=== PATIENT | male | born 1995 | race Hispanic/Latino ===

== ENCOUNTER 2018-09-03 06:51 | Emergency (ER) | payer BC ==
[2018-09-03] MEDS ORDERED: FAMOTIDINE/PF 20 MG/2 ML VIAL IV ONE (07:40)
[2018-09-03] MEDS ORDERED: ONDANSETRON HCL 4 MG/2 ML VIAL ONE (07:40)
[2018-09-03 07:58] LABS: BASOPHILS % (AUTO) 0.1 % (0.0-5.0); EOSINOPHILS % (AUTO) 0.4 % (0.0-8.0); HEMATOCRIT 44.7 % (42-54); LYMPHOCYTES % (AUTO) 3.1 % (21.0-51.0); MEAN CORPUSCULAR HEMOGLOBIN 31.5 pg (27.0-33.0); MEAN CORPUSCULAR HGB CONC 33.7 g/dL (32.0-36.0); MEAN CORPUSCULAR VOLUME 93.6 fL (80-100); MONOCYTES % (AUTO) 4.2 % (3.0-13.0); NEUTROPHILS % (AUTO) 92.2 % (40.0-77.0); PLATELET COUNT (AUTO) 238 K/uL (130-400); RED BLOOD CELL COUNT(AUTO) 4.77 MIL/uL (4.50-6.20); RED CELL DISTRIBUTION WIDTH 13.9 % (11.0-15.5)
[2018-09-03 08:10] LABS: CREATININE 0.9 mg/dL (0.5-1.5); POTASSIUM 3.9 mmol/L (3.5-5.1)
[2018-09-03 08:12] LABS: RAPID GROUP A STREP NEGATIVE (NEGATIVE)
[2018-09-03 08:16] LABS: ALBUMIN 4.7 g/dL (3.5-5.0); BILIRUBIN,TOTAL 0.7 mg/dL (0.2-1.0); TOTAL PROTEIN, SERUM 8.1 g/dL (6.0-8.3)
[2018-09-03] MEDS ORDERED: ACETAMINOPHEN EXTRA STRENGTH 500 MG TABLET ONE (08:37)
[2018-09-03 08:38] LABS: APPEARANCE,URINE Clear (CLEAR); BILIRUBIN,URINE Negative (NEGATIVE); COLOR,URINE Yellow (YELLOW); GLUCOSE, URINE (UA) Negative (NEGATIVE); KETONES,URINE Negative (NEGATIVE); LEUKOCYTE ESTERASE ,URINE Negative (NEGATIVE); NITRATE,URINE Negative (NEGATIVE); OCCULT BLOOD,URINE Negative (NEGATIVE); PH,URINE 7.5 (5.0-8.0); PROTEIN,URINE Negative (NEGATIVE)
== END 2018-09-03 09:33 | disposition home or self-care (01) ==
LOC: EDH 06:51
DX: T62.8X1A Toxic effect of other specified noxious substances eaten as food, accidental (unintentional), initial encounter (principal); E86.0 Dehydration; R11.2 Nausea with vomiting, unspecified; R10.13 Epigastric pain; Y92.89 Other specified places as the place of occurrence of the external cause
CPT/HCPCS: 36415; 80053; 81003; 83690; 85025; 87804 ×2; 87880; 96361; 96374; 96375; 99285; J2405; J3490

== ENCOUNTER 2022-01-27 23:10 | Emergency (ER) | payer BC ==
[~2022-01-27] VITALS: Ht 172.7 cm; Wt 53.5 kg
[~2022-01-27 23:10] MED LIST: 0.9%NACL 1000ML 1,000 ML IV ONE; ONDANSETRON 4MG INJ IVP ONE
[2022-01-27 23:40] LABS: BASOPHILS % (AUTO) 0.3 % (0.0-5.0); EOSINOPHILS % (AUTO) 0.8 % (0.0-8.0); HEMATOCRIT 42.1 % (42-54); LYMPHOCYTES % (AUTO) 7.8 % (21.0-51.0); MEAN CORPUSCULAR HEMOGLOBIN 31.5 pg (27.0-33.0); MEAN CORPUSCULAR HGB CONC 34.9 g/dL (32.0-36.0); MEAN CORPUSCULAR VOLUME 90.3 fL (79-99); MONOCYTES % (AUTO) 6.5 % (3.0-13.0); NEUTROPHILS % (AUTO) 84.3 % (40.0-77.0); PLATELET COUNT (AUTO) 209 K/uL (130-400); RED BLOOD CELL COUNT(AUTO) 4.66 MIL/uL (4.50-6.20); RED CELL DISTRIBUTION WIDTH 13.2 % (11.0-15.5); WHITE BLOOD COUNT (AUTO) 7.8 K/uL (4.8-10.8)
[2022-01-27 23:45] LABS: APPEARANCE,URINE CLEAR (CLEAR); BILIRUBIN,URINE NEGATIVE (NEGATIVE); COLOR,URINE YELLOW (YELLOW); GLUCOSE, URINE (UA) NEGATIVE (NEGATIVE); KETONES,URINE NEGATIVE (NEGATIVE); LEUKOCYTE ESTERASE ,URINE NEGATIVE Leu/uL (NEGATIVE); NITRATE,URINE NEGATIVE (NEGATIVE); OCCULT BLOOD,URINE SMALL (NEGATIVE); PH,URINE 5.5 (5.0-8.0); PROTEIN,URINE 20 mg/dL (NEGATIVE); UROBILINOGEN,URINE 0.2 mg/dL (0.2-1.0)
[2022-01-27 23:49] LABS: MUCUS,URINE MANY LPF (None Seen); SQUAMOUS EPITHELIAL CELL,UR RARE /HPF (0-2)
[2022-01-27 23:51] LABS: CREATININE 0.9 mg/dL (0.5-1.5); POTASSIUM 3.3 mmol/L (3.5-5.1)
[2022-01-27 23:55] LABS: TOTAL PROTEIN, SERUM 7.3 g/dL (6.0-8.3)
[2022-01-28] MEDS ORDERED: ONDANSETRON 4MG INJ IVP ONE (01:00)
[2022-01-28] MEDS ORDERED: 0.9%NACL 1000ML 1,000 ML IV SCH ×2 (01:00)
[2022-01-28 01:06] VITALS: BP 112/69
[2022-01-28] MEDS ORDERED: ONDA4TAB10 PO (01:24)
== END 2022-01-28 01:35 | disposition home or self-care (01) ==
LOC: EDH 23:10
DX: K52.9 Noninfective gastroenteritis and colitis, unspecified (principal); E86.9 Volume depletion, unspecified
CPT/HCPCS: 99284; 80053; 83690; 85025; 81001; 36415; 96374; J7030; J2405

== ENCOUNTER 2022-03-27 15:23 | Emergency (ER) | payer BC ==
[~2022-03-27] VITALS: Ht 177.8 cm; Wt 54.4 kg
[~2022-03-27 15:23] MED LIST changes: -0.9%NACL 1000ML 1,000 ML IV ONE; +ONDA4TAB10 PO; -ONDANSETRON 4MG INJ IVP ONE
[2022-03-27 15:25] VITALS: BP 142/83
[2022-03-27 16:18] LABS: APPEARANCE,URINE CLEAR (CLEAR); BILIRUBIN,URINE NEGATIVE (NEGATIVE); COLOR,URINE LIGHT-YELLOW (YELLOW); GLUCOSE, URINE (UA) NEGATIVE (NEGATIVE); KETONES,URINE NEGATIVE (NEGATIVE); LEUKOCYTE ESTERASE ,URINE 250 Leu/uL (NEGATIVE); NITRATE,URINE NEGATIVE (NEGATIVE); OCCULT BLOOD,URINE NEGATIVE (NEGATIVE); PH,URINE 6.5 (5.0-8.0); PROTEIN,URINE NEGATIVE (NEGATIVE); UROBILINOGEN,URINE 0.2 mg/dL (0.2-1.0)
[2022-03-27 16:23] LABS: BACTERIA,URINE RARE /HPF (None Seen); MUCUS,URINE RARE LPF (None Seen); SQUAMOUS EPITHELIAL CELL,UR RARE /HPF (0-2); WBC,URINE 51-100 /HPF (0-1)
[2022-03-27] MEDS ORDERED: AZITHROMYCIN 250 MG TABLET PO ONE (17:00)
[2022-03-27] MEDS ORDERED: CEFTRIAXONE 1G VIAL IM ONE (17:00)
== END 2022-03-27 17:22 | disposition home or self-care (01) ==
LOC: EDH 15:23
DX: A54.9 Gonococcal infection, unspecified (principal)
CPT/HCPCS: 99284; 87088; 87797; 87486; 81001; 96372; J0696

== ENCOUNTER 2025-01-08 22:54 | Emergency (ER) | payer BC, OTHER ==
[~2025-01-08] VITALS: Ht 175.3 cm; Wt 64.9 kg
[~2025-01-08 22:54] MED LIST changes: +ONDA-243 PO; -ONDA4TAB10 PO
[2025-01-08 23:30] LABS: IMMATURE GRANULOCYTE ABSOLUTE 0.02 K/uL (0-1); NUCLEATED RED BLOOD CELLS 0.0 % (0.0-0.19); PLATELET COUNT (AUTO) 208 K/uL (130-400); RED BLOOD CELL COUNT(AUTO) 4.06 MIL/uL (4.50-6.20); RED CELL DISTRIBUTION WIDTH 13.1 % (11.0-15.5); WHITE BLOOD COUNT (AUTO) 6.8 K/uL (4.8-10.8)
[2025-01-08 23:48] LABS: CREATININE 0.7 mg/dL (0.5-1.3); GLOMERULAR FILTR. RATE CALC 130.0 mL/min (>90); GLUCOSE,RANDOM 90.0 mg/dL (70-105); SODIUM SERUM 139.0 mmol/L (136-145); UREA NITROGEN, BLOOD 18.0 mg/dL (7-18)
--- NOTE | 2025-01-09 00:10 | ERN ---
ED Note History of Present Illness Stated Complaint: C/O HEADACHE ONSET THIS EVENING Chief Complaint: Headache Time Seen by MD: 22:57 Time Seen by Midlevel: 22:57 Dictation: The Patient is a 29-year-old male with no past medical history who presents to the emergency department with complaints of generalized headache onset today. Patient reports he has frequent headaches and has been having them for over a year. Reports headaches are almost every other day. Patient denies any head trauma. Denies any fevers. Allergies: Coded Allergies: No Known Allergies (Unverified Allergy, Unknown, 01/27/22) Home Meds Active Scripts Ondansetron (Ondansetron Odt) 4 Mg Tab.rapdis, 4 MG PO TIDP PRN for NAUSEA/VOMITING, #12 TAB 0 Refills Prov:YANIV CASTANO MD 01/28/22 Past Medical History Past Medical History: No Pertinent History Surgical History: None Social History: Other RN Note Reviewed/Agreed w/PFSH: Yes Review of System Dictation Constitutional: Negative for fever,chills, and weight loss Eyes: Negative for injury, pain,redness, and discharge ENT: Negative for injury,pain or swelling Cardiovascular: Negative for chest pain, palpitations, and edema Respiratory: Negative for shortness of breath, cough, and wheezing, Abdomen/GI: Negative for abdominal pain, nausea, vomiting, diarrhea, and constipation Back: Negative for injury and pain : Negative for injury, bleeding and discharge MS/Extremity: Negative for injury and deformity Skin: Negative for rash, and discoloration Neuro: Negative for , weakness, numbness, tingling, and seizure positive for headache Psych: Negative for suicide ideation, homicidal ideation, and hallucinations Initial Vital Sign VS Vital Signs Date Time Temp Pulse Resp B/P (MAP) Pulse Ox O2 Delivery O2 Flow Rate FiO2 01/08/25 22:56 98.2 78 20 118/74 99 Room Air 01/09/25 01:14 0 21 Physical Exam Dictation Vital Signs reviewed General Appearance: Alert, oriented x 3, no acute distress, well developed, nourished. Head and Face: non-traumatic. Eyes: PERRL, pink conjunctivas, eyelid no trauma, anterior chamber with arcus senilis. Ears: Pinnas intact and no signs of trauma or erythema ear canals clear and no discharge TM no erythema Nose: No discharge, no bleeding. Oropharynx: Mouth normal, tongue pink. pharynx clear,no erythema, tonsils no exudates, no abscesses noted, mucous membrane moist Neck: Supple, non-tender, no thyromegaly, no masses, no JVD, no bruits Breast:Deferred Chest:No tenderness, no crepitus, no paradoxical movement, no retractions Lungs:Clear, well-ventilated, symmetric, no rales, no wheezing, no rhonchi, no stridor, good breath sounds bilaterally Heart: Regular rate, regular rhythm, no murmur, no gallops Vascular: no peripheral edema, Abdomen: Soft, positive bowel sounds, nondistended, no guarding, nontender, no rebound, no masses no hepatomegaly, no splenomegaly, no Chanel's sign, no hernias. Rectal: Deferred Genital: Deferred Neurological: Normal speech, motor function intact, sensory function intact , upper extremities equal in strength, lower extremities equal in strength, no facial droop Musculoskeletal: Neck nontender, full range of motion, back nontender, full range of motion, Extremities: nontender, full range of motion Skin: Color pink, dry, no turgor, no rash, no lacerations, no abrasions, no contusions. Lymphatic: Deferred Results (Laboratory/Radiology) Laboratory/Radiology Laboratory Tests Test 01/08/25 23:24 01/09/25 01:15 White Blood Count 6.8 K/uL (4.8-10.8) Red Blood Count 4.06 MIL/uL (4.50-6.20) L Hemoglobin 12.9 g/dL (14.0-18.0) L Hematocrit 37.3 % (42-54) L Mean Corpuscular Volume 91.9 fL (79-99) Mean Corpuscular Hemoglobin 31.8 pg (27.0-33.0) Mean Corpuscular Hemoglobin Concent 34.6 g/dL (32.0-36.0) Red Cell Distribution Width 13.1 % (11.0-15.5) Platelet Count 208 K/uL (130-400) Mean Platelet Volume 9.9 fL (7.5-10.5) Immature Granulocyte % (Auto) 0.3 % (0-1) Neutrophils (%) (Auto) 43.7 % (40.0-77.0) Lymphocytes (%) (Auto) 43.9 % (21.0-51.0) Monocytes (%) (Auto) 9.0 % (3.0-13.0) Eosinophils (%) (Auto) 2.7 % (0.0-8.0) Basophils (%) (Auto) 0.4 % (0.0-5.0) Neutrophils # (Auto) 3.0 K/uL (1.8-7.7) Lymphocytes # (Auto) 3.0 K/uL (1.0-4.8) Monocytes # (Auto) 0.6 K/uL (0.1-1.0) Eosinophils # (Auto) 0.18 K/uL (0.00-0.70) Basophils # (Auto) 0.03 K/uL (0.00-0.20) Absolute Immature Granulocyte (auto 0.02 K/uL (0-1) Nucleated Red Blood Cells 0.0 % (0.0-0.19) Sodium Level 139 mmol/L (136-145) Potassium Level 3.9 mmol/L (3.5-5.1) Chloride Level 103 mmol/L (101-111) Carbon Dioxide Level 31 mmol/L (21-32) Blood Urea Nitrogen 18 mg/dL (7-18) Creatinine 0.7 mg/dL (0.5-1.3) Glomerular Filtration Rate Calc 130 mL/min (>90) Random Glucose 90 mg/dL (70-105) Total Calcium 9.0 mg/dL (8.5-10.1) Influenza Type A Antigen Negative For Type A Influenza Type B Antigen Negative For Type B SARS-CoV-2 Antigen (Rapid) PRESUMPTIVE NEGATIVE Labs Reviewed?: Yes ED Course ED Course Orders Procedure Category Date Status Time Cbc With Differential LAB 01/08/25 Complete 23:07 Basic Metabolic Panel LAB 01/08/25 Complete 23:07 Covid19 (Sars Antigen LAB 01/08/25 Complete Rapid) 23:07 Influenza Type A & B, LAB 01/08/25 Complete Rapid 23:07 0.9%Nacl 1000ml (Ns PHA 01/08/25 Complete 1000ml) 23:30 Acetaminophen 500mg PHA 01/08/25 Complete Tab (Tylenol 500mg T 23:30 Metoclopramide 10 PHA 01/08/25 Complete Mg/2 Ml Vial (Reglan 1 23:30 Diphenhydramine Hcl PHA 01/08/25 Complete (Benadryl Inj) 23:30 Current Medications Medications (Trade) Dose Ordered Sig/Rishabh Route PRN Reason Start Time Stop Time Status Last Admin Dose Admin Acetaminophen (TYLenol 500MG TAB) 1,000 mg ONCE ONCE PO 01/08/25 23:30 01/08/25 23:31 DC Diphenhydramine HCl (BENAdryl INJ) 25 mg ONCE ONCE IV 01/08/25 23:30 01/08/25 23:31 DC Metoclopramide HCl (regLAN 10MG IV) 10 mg ONCE ONCE IVP 01/08/25 23:30 01/08/25 23:31 DC Sodium Chloride 1,000 ml @ 0 mls/hr ONCE ONCE IV 01/08/25 23:30 01/08/25 23:31 DC 01/09/25 01:28 Vital Signs Date Time Temp Pulse Resp B/P (MAP) Pulse Ox O2 Delivery O2 Flow Rate FiO2 01/09/25 01:14 98.2 75 18 118/74 99 Room Air* 0 21 01/08/25 22:56 98.2 78 20 118/74 99 Room Air Medical Decision Making MDM The Patient is a 29-year-old male with no past medical history who presents to the emergency department with complaints of generalized headache onset today. Patient reports he has frequent headaches and has been having them for over a year. Reports headaches are almost every other day. Patient denies any head trauma. Denies any fevers. CBC showed no leukocytosis, mild normocytic anemia, chemistry showed no electrolyte imbalance. Serology negative. Patient reports improving after medication administration. Patient continues neurologically intact. Patient will be discharged to follow up with PCP. Differential diagnosis: Dehydration, tension headache, upper respiratory infection Need for hospitalization: Patient does not meet criteria for hospitalization. There are no social concerns with this patient. DX & DISP Disposition: Discharge Departure Impression: Primary Impression: Tension headache Condition: Stable Scripts Aspirin/Acetaminophen/Caffeine (Excedrin Extra Strength Caplet) 250 Mg-250 Mg-65 Mg Tablet 2 EACH PO DAILY PRN for headache, #30 TAB Prov: JASMINA HERNANDEZ LEAD INSTRUCTOR/FLIGHT ATTENDANT 01/09/25 Additional Instructions: Please follow up with your primary doctor in 1-2 days. Your labs were unremarkable except your were slightly anemic. Take your medications as prescribed. If symptoms worsen please return to ER. FOLLOW-UP WITH PRIMARY CARE PROVIDER IN 1 TO 2 DAYS. TAKE MEDICATIONS DIRECTED HERE IN THE EMERGENCY ROOM. OKAY TO CONTINUE HOME MEDICATIONS UNLESS OTHERWISE DISCUSSED DURING YOUR VISIT IN THE EMERGENCY ROOM TODAY. RETURN TO YOUR NEAREST EMERGENCY ROOM IF SYMPTOMS WORSEN OR IF THERE IS NO IMPROVEMENT. CALL 911 IF YOU NEED IMMEDIATE ASSISTANCE. TAKE TYLENOL [id number] NEEDED AND IF NO CONTRAINDICATIONS ARE PRESENT. INCREASE ORAL HYDRATION. A WOUND CULTURE OR URINE CULTURE WAS ORDERED HERE IN THE EMERGENCY ROOM DEPARTMENT PLEASE FOLLOW-UP WITH PRIMARY CARE PROVIDER AND ADVISE THEM TO GET REPEAT PORTS FROM OUR FACILITY. IF YOU HAD ANY CARLY WRAP/SPLINTS THAT WERE APPLIED HERE, PLEASE DO NOT REMOVE THEM UNTIL YOU SEE YOUR PRIMARY CARE OR SPECIALTY. Referrals: DAMI WATSON NP (PCP) Time of Disposition: 02:04 I have reviewed the case, and I agree with, Diagnosis and Plan JASMINA HERNANDEZ Jan 09, 2025 00:10
[2025-01-09] MEDS: 0.9%NACL 1000ML 1,000 ML IV ONE (01:28)
[2025-01-09 02:02] LABS: COVID19 (SARS ANTIGEN RAPID) PRESUMPTIVE NEGATIVE (NEGATIVE); INFLUENZA TYPE A Negative For Type A (NEGATIVE); INFLUENZA TYPE B Negative For Type B (NEGATIVE)
[2025-01-09] MEDS ORDERED: ASPI-1190 PO (02:06)
[2025-01-09 02:32] VITALS: BP 120/84; PULSE 78; RESP 16; TEMP 98.2; O2SAT 99
== END 2025-01-09 02:37 | disposition home or self-care (01) ==
LOC: EDH 22:54
DX: G44.209 Tension-type headache, unspecified, not intractable (principal); Z20.822 Contact with and (suspected) exposure to COVID-19
CPT/HCPCS: 99284; 87426; 80048; 85025; 87804 ×2; 36415; 96374; 96361; 96375; J1200; J7030; J2765